=== PATIENT | male | born 1995 | race African-American/Black ===

== ENCOUNTER 2024-05-31 21:47 | Inpatient (IN) | payer OTHER ==
[2024-05-31 22:13] VITALS: BMI 29.5
[2024-05-31] MEDS ORDERED: IBUPROFEN 600 MG TABLET (FP) PO PRN (22:42)
[2024-05-31] MEDS ORDERED: IBUPROFEN 400 MG TABLET (FP) PO PRN (22:42)
[2024-05-31] MEDS ORDERED: LOPERAMIDE HCL 2 MG CAPSULE PO PRN (22:42)
[2024-05-31] MEDS ORDERED: ONDANSETRON *ODT* 4 MG TABLET SL PRN (22:42)
[2024-05-31] MEDS ORDERED: ACETAMINOPHEN 325 MG TABLET (FP) PO PRN (22:42)
[2024-05-31] MEDS ORDERED: BENZONATATE 200 MG CAPSULE PO PRN (22:42)
[2024-05-31] MEDS ORDERED: BENZOCAINE/MENTHOL (CHLORASEPTIC ) LOZENGE MM PRN (22:42)
[2024-05-31] MEDS ORDERED: POLYETHYLENE GLYCOL (HEALTHYLAX) 3350 17 GM PACKET PO PRN (22:42)
[2024-05-31] MEDS ORDERED: MAGNESIUM HYDROX 2400MG/30ML ORAL SUSPENSION 30 ML CUP PO PRN (22:42)
[2024-05-31] MEDS ORDERED: MAG HYDROX/AL HYDROX/SIMETH 30 ML UNIT-DOSE CUP PO PRN (22:42)
[2024-05-31] MEDS ORDERED: guaiFENesin 600 MG TABLET.ER (FP) PO PRN (22:42)
[2024-05-31] MEDS ORDERED: BISMUTH SUBSALICYLATE 524 MG/30 ML PO PRN (22:42)
[2024-05-31] MEDS ORDERED: chlordiazePOXIDE HCL 25 MG CAPSULE PO PRN (22:43)
[2024-05-31] MEDS: chlordiazePOXIDE HCL 25 MG CAPSULE PO SCH (23:23)
[2024-05-31] MEDS: METOPROLOL TARTRATE 25 MG TABLET (FP) PO ONE (23:23)
[2024-05-31] MEDS ORDERED: chlordiazePOXIDE HCL 25 MG CAPSULE ONE (23:24)
[2024-05-31] MEDS ORDERED: METOPROLOL TARTRATE 25 MG TABLET (FP) ONE (23:25)
[2024-06-01] MEDS: METHOCARBAMOL 500 MG TABLET PO PRN (00:37)
[2024-06-01] MEDS: DICYCLOMINE HCL 10 MG CAPSULE PO PRN (02:34)
[2024-06-01] MEDS: PRENATAL VITAMINS W/ FOLIC ACID TABLET (FP) PO SCH (09:07)
[2024-06-01 13:50] LABS: HEMATOCRIT 38.7 % (35.4-49); MCH 32.1 pg (25.7-33.7); MCHC 33.6 g/dl (32.0-35.9); MEAN CELL VOLUME 95.4 fl (80-96); PLATELET COUNT 309 10^3/uL (134-434); RBC 4.05 M/mm3 (4.00-5.60); RDW 13.9 % (11.9-15.9); WHITE BLOOD COUNT 5.4 K/mm3 (4.0-10.0)
[2024-06-01 13:52] LABS: POTASSIUM 3.7 mmol/L (3.5-5.1); SODIUM 134 mmol/L (136-145)
[2024-06-01 13:55] LABS: CALCIUM 9.7 mg/dL (8.5-10.1)
[2024-06-01 13:56] LABS: ALBUMIN 3.9 g/dl (3.4-5.0); CO2 28 mmol/L (21-32); GLUCOSE,RANDOM 116 mg/dL (74-106)
[2024-06-01 14:01] LABS: BILIRUBIN,TOTAL 0.7 mg/dL (0.2-1)
[2024-06-01 14:02] LABS: ALK PHOS 174 U/L (45-117)
[2024-06-01 14:12] LABS: ANION GAP 7 mmol/L (4-13); BLOOD UREA NITROGEN 6.8 mg/dL (7-18); CHLORIDE 99 mmol/L (98-107); CREATININE 0.8 mg/dL (0.55-1.3); SGOT/AST 998 U/L (15-37); SGPT/ALT 303 U/L (13-61)
[2024-06-01] MEDS ORDERED: LORazepam 1 MG TABLET PO PRN (16:29)
[2024-06-01] MEDS: LORazepam 2 MG TABLET PO SCH (17:38)
[2024-06-01] MEDS: MELATONIN 5 MG TABLETS PO SCH (22:15)
[2024-06-01] MEDS: THIAMINE 100 MG TABLET PO SCH (22:15)
[2024-06-02] MEDS ORDERED: chlordiazePOXIDE HCL 25 MG CAPSULE PO SCH (05:00)
[2024-06-02 08:57] VITALS: RESP 16
[2024-06-02 11:54] LABS: POTASSIUM 3.9 mmol/L (3.5-5.1)
[2024-06-02 11:56] LABS: CALCIUM 9.6 mg/dL (8.5-10.1)
[2024-06-02 11:57] LABS: ALBUMIN 3.8 g/dl (3.4-5.0)
[2024-06-02 12:00] LABS: CREATININE 0.7 mg/dL (0.55-1.3)
[2024-06-02 12:01] LABS: BILIRUBIN,TOTAL 0.8 mg/dL (0.2-1)
[2024-06-02 12:02] LABS: TOT PROT 7.5 g/dl (6.4-8.2)
[2024-06-02 12:56] VITALS: BP 134/84; PULSE 75; TEMP 97.9
[2024-06-02] MEDS: LACTULOSE 20 GM/30 ML UDC (FOR ORAL USE ONLY) PO SCH (13:38)
[2024-06-03] MEDS ORDERED: chlordiazePOXIDE HCL 10 MG CAPSULE PO PRN
[2024-06-03] MEDS ORDERED: LORazepam 1 MG TABLET PO SCH (05:00)
[2024-06-03] MEDS ORDERED: chlordiazePOXIDE HCL 10 MG CAPSULE PO SCH (05:00)
[2024-06-04] MEDS ORDERED: LORazepam 0.5 MG TABLET PO PRN
[2024-06-04] MEDS ORDERED: chlordiazePOXIDE HCL 10 MG CAPSULE PO SCH (05:00)
[2024-06-04] MEDS ORDERED: LORazepam 0.5 MG TABLET PO SCH (05:00)
[2024-06-05] MEDS ORDERED: LORazepam 0.5 MG TABLET PO ONE (05:00)
[2024-06-05] MEDS ORDERED: chlordiazePOXIDE HCL 10 MG CAPSULE PO ONE (05:00)
== END 2024-06-02 15:58 | disposition left against medical advice (07) | DRG 770 ==
LOC: YASAS 21:47 → Y6N 22:48
PROVIDERS: ADMIT Allergy & Immunology; ATTEND Surgery
PROC: HZ2ZZZZ Detoxification Services for Substance Abuse Treatment (ICD-10-PCS; principal; 2024-05-31)
DX: F10.230 Alcohol dependence with withdrawal, uncomplicated (principal); E72.20 Disorder of urea cycle metabolism, unspecified; R74.8 Abnormal levels of other serum enzymes; Z86.69 Personal history of other diseases of the nervous system and sense organs; Z56.0 Unemployment, unspecified
CPT/HCPCS: 36415; 80053; 80305; 80307; 82140; 85027; 86780; 86803; 93005; 93010

== ENCOUNTER 2024-12-07 11:24 | Inpatient (IN) | payer OTHER ==
[2024-12-07 11:53] VITALS: BMI 31.0
[2024-12-07] MEDS ORDERED: BENZONATATE 200 MG CAPSULE PO PRN (12:54)
[2024-12-07] MEDS ORDERED: IBUPROFEN 400 MG TABLET (FP) PO PRN (12:54)
[2024-12-07] MEDS ORDERED: MAG HYDROX/AL HYDROX/SIMETH 30 ML UNIT-DOSE CUP PO PRN (12:54)
[2024-12-07] MEDS ORDERED: LOPERAMIDE HCL 2 MG CAPSULE PO PRN (12:54)
[2024-12-07] MEDS ORDERED: BISMUTH SUBSALICYLATE 524 MG/30 ML PO PRN (12:54)
[2024-12-07] MEDS ORDERED: NALOXONE (NARCAN) HCL 4 MG/0.1 ML SPRAY NS PRN (12:54)
[2024-12-07] MEDS ORDERED: POLYETHYLENE GLYCOL (HEALTHYLAX) 3350 17 GM PACKET PO PRN (12:54)
[2024-12-07] MEDS ORDERED: MAGNESIUM HYDROX 2400MG/30ML ORAL SUSPENSION 30 ML CUP PO PRN (12:54)
[2024-12-07] MEDS ORDERED: hydrOXYzine PAMOATE 25 MG CAPSULE (FP) PO PRN (12:54)
[2024-12-07] MEDS ORDERED: BENZOCAINE/MENTHOL (CHLORASEPTIC ) LOZENGE MM PRN (12:54)
[2024-12-07] MEDS ORDERED: guaiFENesin 600 MG TABLET.ER (FP) PO PRN (12:54)
[2024-12-07] MEDS ORDERED: ONDANSETRON *ODT* 4 MG TABLET ONE (13:08)
[2024-12-07] MEDS ORDERED: LORazepam 2 MG TABLET ONE (13:08)
[2024-12-07] MEDS ORDERED: levETIRAcetam 500 MG TABLET (FP) PO ONE (13:08)
[2024-12-07] MEDS: PRENATAL VITAMINS W/ FOLIC ACID TABLET (FP) PO SCH (13:10)
[2024-12-07] MEDS: levETIRAcetam 500 MG TABLET (FP) PO ONE (13:10)
[2024-12-07] MEDS: ONDANSETRON *ODT* 4 MG TABLET SL PRN (13:10)
[2024-12-07] MEDS: LORazepam 2 MG TABLET PO ONE (13:10)
[2024-12-07] MEDS: NALTREXONE HCL 50 MG TABLET PO SCH (13:41)
[2024-12-07] MEDS: LORazepam 2 MG TABLET PO SCH (16:57)
[2024-12-07] MEDS: ACETAMINOPHEN 325 MG TABLET (FP) PO PRN (16:59)
[2024-12-07] MEDS: MELATONIN 5 MG TABLETS PO SCH (22:29)
[2024-12-07] MEDS: THIAMINE 100 MG TABLET PO SCH (22:29)
[2024-12-08] MEDS: METHOCARBAMOL 500 MG TABLET PO PRN (02:59)
[2024-12-08] MEDS: IBUPROFEN 600 MG TABLET (FP) PO PRN (02:59)
[2024-12-08] MEDS: LORazepam 1 MG TABLET PO PRN (03:01)
[2024-12-08] MEDS: levETIRAcetam 500 MG TABLET (FP) PO SCH (10:50)
[2024-12-08 12:11] LABS: HEMATOCRIT 36.9 % (35.4-49); HEMOGLOBIN 12.5 GM/dL (11.7-16.9); MCH 31.7 pg (25.7-33.7); MCHC 33.7 g/dl (32.0-35.9); MEAN PLT VOLUME 8.3 fl (7.5-11.1); PLATELET COUNT 302 10^3/uL (134-434); RBC 3.93 M/mm3 (4.00-5.60); RDW 13.9 % (11.9-15.9); WHITE BLOOD COUNT 3.6 K/mm3 (4.0-10.0)
[2024-12-08] MEDS: LACTULOSE 20 GM/30 ML UDC (FOR ORAL USE ONLY) PO SCH (13:30)
[2024-12-08] MEDS: levETIRAcetam 500 MG TABLET (FP) PO ONE (13:31)
[2024-12-08] MEDS: DICYCLOMINE HCL 10 MG CAPSULE PO PRN (17:37)
[2024-12-08] MEDS: MIRTAZAPINE 15 MG TABLET (FP) PO SCH (22:24)
[2024-12-09] MEDS: LORazepam 1 MG TABLET PO SCH (05:46)
[2024-12-10] MEDS ORDERED: LORazepam 0.5 MG TABLET PO PRN
[2024-12-10] MEDS: LORazepam 0.5 MG TABLET PO SCH (05:40)
[2024-12-10 08:45] VITALS: BP 150/90; PULSE 84; RESP 16; TEMP 97.7
[2024-12-11] MEDS ORDERED: LORazepam 0.5 MG TABLET PO ONE (05:00)
== END 2024-12-10 10:12 | disposition home or self-care (01) | DRG 775 ==
LOC: YASAS 11:24 → Y3N 13:17 → Y6N 12-08 23:01 → Y3N 12-08 23:02
PROVIDERS: ADMIT Allergy & Immunology; ATTEND Allergy & Immunology
PROC: HZ2ZZZZ Detoxification Services for Substance Abuse Treatment (ICD-10-PCS; principal; 2024-12-07)
DX: F10.230 Alcohol dependence with withdrawal, uncomplicated (principal); F10.280 Alcohol dependence with alcohol-induced anxiety disorder; F32.A Depression, unspecified; E72.20 Disorder of urea cycle metabolism, unspecified; G40.909 Epilepsy, unspecified, not intractable, without status epilepticus
CPT/HCPCS: 36415; 80305; 80307; 82140; 85027; 86780; 93005; 93010; Q0162

== ENCOUNTER 2025-02-10 22:00 | Inpatient (IN) | payer OTHER ==
[2025-02-10 22:26] VITALS: BMI 28.8
[2025-02-10] MEDS ORDERED: METHOCARBAMOL 500 MG TABLET PO PRN (22:51)
[2025-02-10] MEDS ORDERED: guaiFENesin 600 MG TABLET.ER (FP) PO PRN (22:51)
[2025-02-10] MEDS ORDERED: BENZONATATE 200 MG CAPSULE PO PRN (22:51)
[2025-02-10] MEDS ORDERED: IBUPROFEN 400 MG TABLET (FP) PO PRN (22:51)
[2025-02-10] MEDS ORDERED: NALOXONE (NARCAN) HCL 4 MG/0.1 ML SPRAY NS PRN (22:51)
[2025-02-10] MEDS ORDERED: ACETAMINOPHEN 325 MG TABLET (FP) PO PRN (22:51)
[2025-02-10] MEDS ORDERED: BENZOCAINE/MENTHOL (CHLORASEPTIC ) LOZENGE MM PRN (22:51)
[2025-02-10] MEDS ORDERED: MAG HYDROX/AL HYDROX/SIMETH 30 ML UNIT-DOSE CUP PO PRN (22:51)
[2025-02-10] MEDS ORDERED: hydrOXYzine PAMOATE 25 MG CAPSULE (FP) PO PRN (22:51)
[2025-02-10] MEDS ORDERED: ONDANSETRON *ODT* 4 MG TABLET SL PRN (22:51)
[2025-02-10] MEDS ORDERED: MAGNESIUM HYDROX 2400MG/30ML ORAL SUSPENSION 30 ML CUP PO PRN (22:51)
[2025-02-10] MEDS ORDERED: BISMUTH SUBSALICYLATE 524 MG/30 ML PO PRN (22:51)
[2025-02-10] MEDS ORDERED: POLYETHYLENE GLYCOL (HEALTHYLAX) 3350 17 GM PACKET PO PRN (22:51)
[2025-02-10] MEDS ORDERED: LOPERAMIDE HCL 2 MG CAPSULE PO PRN (22:51)
[2025-02-10] MEDS ORDERED: DICYCLOMINE HCL 10 MG CAPSULE PO PRN (22:51)
[2025-02-10] MEDS ORDERED: chlordiazePOXIDE HCL 25 MG CAPSULE PO PRN (22:51)
[2025-02-10] MEDS ORDERED: IBUPROFEN 600 MG TABLET (FP) PO PRN (22:51)
[2025-02-10] MEDS ORDERED: chlordiazePOXIDE HCL 25 MG CAPSULE ONE (23:05)
[2025-02-10] MEDS ORDERED: levETIRAcetam 500 MG TABLET (FP) PO ONE (23:05)
[2025-02-10] MEDS ORDERED: METOPROLOL TARTRATE 25 MG TABLET (FP) ONE (23:06)
[2025-02-10] MEDS: levETIRAcetam 500 MG TABLET (FP) PO SCH (23:08)
[2025-02-10] MEDS: METOPROLOL TARTRATE 25 MG TABLET (FP) PO ONE (23:08)
[2025-02-10] MEDS: chlordiazePOXIDE HCL 25 MG CAPSULE PO SCH (23:08)
[2025-02-11 09:26] LABS: POTASSIUM 3.5 mmol/L (3.5-5.1)
[2025-02-11 09:27] LABS: HEMATOCRIT 37.3 % (40.1-51.0); HEMOGLOBIN 12.4 g/dL (13.7-17.5); MCHC 33.2 g/dl (32.3-36.5); MEAN CELL VOLUME 91.4 fl (79.0-92.2); MEAN PLT VOLUME 9.6 fl (9.4-12.4); PLATELET COUNT 221 x10^3/uL (163-337); RDW 12.7 % (12.0-15.6)
[2025-02-11 09:46] VITALS: BP 119/90; PULSE 96; RESP 18; TEMP 98.6
[2025-02-11 09:59] LABS: BLOOD UREA NITROGEN 11.5 mg/dL (7-18); CALCIUM 9.4 mg/dL (8.5-10.1)
[2025-02-11 10:00] LABS: ALBUMIN 3.7 g/dl (3.4-5.0)
[2025-02-11 10:02] LABS: CREATININE 0.7 mg/dL (0.55-1.3)
[2025-02-11 10:03] LABS: BILIRUBIN,TOTAL 0.3 mg/dL (0.2-1); TOT PROT 7.6 g/dl (6.4-8.2)
[2025-02-11] MEDS: PRENATAL VITAMINS W/ FOLIC ACID TABLET (FP) PO SCH (10:55)
[2025-02-11] MEDS: FAMOTIDINE 20 MG TABLET PO SCH (10:55)
[2025-02-11] MEDS ORDERED: MELATONIN 5 MG TABLETS PO SCH (22:00)
[2025-02-11] MEDS ORDERED: THIAMINE 100 MG TABLET PO SCH (22:00)
[2025-02-12] MEDS ORDERED: chlordiazePOXIDE HCL 25 MG CAPSULE PO SCH (05:00)
[2025-02-13] MEDS ORDERED: chlordiazePOXIDE HCL 10 MG CAPSULE PO PRN
[2025-02-13] MEDS ORDERED: chlordiazePOXIDE HCL 10 MG CAPSULE PO SCH (05:00)
[2025-02-14] MEDS ORDERED: chlordiazePOXIDE HCL 10 MG CAPSULE PO SCH (05:00)
[2025-02-15] MEDS ORDERED: chlordiazePOXIDE HCL 10 MG CAPSULE PO ONE (05:00)
== END 2025-02-11 10:00 | disposition home or self-care (01) | DRG 775 ==
LOC: YASAS 22:00 → Y6N 23:09
PROVIDERS: ADMIT Allergy & Immunology; ATTEND Allergy & Immunology
PROC: HZ2ZZZZ Detoxification Services for Substance Abuse Treatment (ICD-10-PCS; principal; 2025-02-10)
DX: F10.230 Alcohol dependence with withdrawal, uncomplicated (principal); F17.210 Nicotine dependence, cigarettes, uncomplicated; F10.24 Alcohol dependence with alcohol-induced mood disorder; E72.20 Disorder of urea cycle metabolism, unspecified; D64.9 Anemia, unspecified; K29.20 Alcoholic gastritis without bleeding; R74.01 Elevation of levels of liver transaminase levels; R73.9 Hyperglycemia, unspecified; Z86.69 Personal history of other diseases of the nervous system and sense organs
CPT/HCPCS: 36415; 80053; 80305; 80307; 82140; 85027; 86780; 93005; 93010